=== PATIENT | female | born 1985 | race Caucasian/White ===

== ENCOUNTER 2017-07-10 09:23 | Emergency (ER) | payer SELFPAY ==
[2017-07-10] MEDS ORDERED: FAMOTIDINE 20 MG/2 ML VIAL IV ONE (10:30)
[2017-07-10] MEDS ORDERED: FENTANYL CITR 100 MCG/2 ML ONE (10:30)
[2017-07-10] MEDS ORDERED: ONDANSETRON 4 MG/2 ML VIAL ONE (10:30)
[2017-07-10] MEDS ORDERED: NA CHLORIDE 0.9% 1,000 ML ONE ×2 (10:30→15:12)
[2017-07-10 10:37] LABS: Absolute Lymphocytes (CBC) 1.5 K/uL (0.7-4.9); Absolute Monocytes 0.8 K/uL (0.1-1.3); Absolute Neutrophil 7.4 K/uL (1.8-8.0); Basophils % 0.2 % (0-1.3); Eosinophils % 0.1 % (0-4.4); Hematocrit 43.4 % (36.0-45.0); MCV 79.5 fL (80-100); MPV 7.7 fL (7.6-11.3); Monocytes % 8.3 % (3.3-12.3); RBC Red Blood Cell Count 5.45 M/uL (3.86-4.86)
[2017-07-10 10:42] LABS: Protime INR 1.09
[2017-07-10 10:50] LABS: Bicarbonate 25 mEq/L (21-31); Glucose Level 99 mg/dL (65-120); Lipase 16 U/L (22-51); Potassium 3.9 mEq/L (3.6-5.0); Sodium Level 137 mEq/L (135-145)
[2017-07-10 10:53] LABS: Urine Blood NEGATIVE (NEG); Urine Glucose NEGATIVE (NEG); Urine Protein NEGATIVE (NEG); Urine Specific Gravity 1.015 (1.005-1.030)
[2017-07-10 10:57] LABS: ALT/SGPT 12 IU/L (10-60); AST/SGOT 15 IU/L (10-42); Albumin 4.5 g/dL (3.2-5.5); Alkaline Phosphatase 61 IU/L (42-121); Amylase Level 40 U/L (28-100); BUN Blood Urea Nitrogen 10 mg/dL (6-20); Bilirubin Direct 0.1 mg/dL (0-0.2); Bilirubin Total 0.8 mg/dL (0.3-1.2); Protein, Total 8.6 g/dL (6.0-8.3)
[2017-07-10 10:59] LABS: Urine Amorphous Sediment TRACE /HPF (NONE SEEN); Urine Bacteria <20 /HPF (<20); Urine Culture Reflex Order NOT NEEDED; Urine RBC NONE SEEN /HPF (NONE SEEN)
[2017-07-10] MEDS ORDERED: CEFTRIAXONE/SWI 1gm 1 GM/10 ML SYR ONE (12:36)
--- NOTE | 2017-07-10 12:49 | RAD REPORT ---
EXAM DESCRIPTION: CT - Abdomen Pelvis W Contrast - 07/10/2017 12:16 pm CLINICAL HISTORY: Abdominal pain, epigastric pain, history of hepatitis COMPARISON: None. TECHNIQUE: Biphasic, helical CT imaging of the abdomen and pelvis was performed following 100 ml non -ionic IV contrast. Oral contrast was given. All CT scans are performed using dose optimization technique as appropriate and may include automated exposure control or mA/KV adjustment according to patient size. FINDINGS: Minimal atelectasis. No acute lung base finding. No pericardial thickening or effusion. Liver shows a mild to borderline fatty infiltration. No focal liver lesion is identifiable. No capsul ar nodularity. No splenomegaly or focal splenic finding. No acute pancreatic process identifiable. No biliary tree dilatation. Symmetric renal function is seen with no hydronephrosis or suspicious renal mass. No pyelonephritis o r acute renal parenchymal process. No urinary bladder, uterus or ovarian abnormality. IUD is in place . No gastric dilatation or gastric wall thickening. No delay in transit of contrast. No primary duodenu m process is seen. No dilated small bowel or small bowel wall thickening. No appendicitis findings. T erminal ileum and ileocecal valve are unremarkable. Oral CT contrast has reached the mid transverse colon. At the hepatic flexure there is asymmetric col on wall thickening and edema. Lumen of the colon is narrowed compared to the transverse and ascending colons. There is a significant amount of fluid and stranding along the margin of the colon abutting the liver. A 4.5 centimeter fluid collection is seen. There is a thin rim of tissue around this fluid collection. The fluid in stranding abut the gallbladder fossa. Gallbladder woods are mildly prominen t. Gallbladder wall appears to be secondarily involved. This is believed to be primarily a colon proc ess. Acute cholecystitis with secondary colon involvement is felt to be lesser in likelihood. There i s no extravasation of the oral contrast as it passes through the hepatic flexure of the colon. No free air or pneumatosis. No other area of fluid or stranding. No hernia or bulky lymphadenopathy. No omental thickening. No adrenal abnormality. No suspicious bony findings. IMPRESSION: Abnormal appearance to the hepatic flexure of the colon with asymmetric wall thickening over a 10 centimeter length with fluid and stranding along the anti mesenteric margin of the colon wh ere it abuts the liver and gallbladder. Gallbladder wall appears to be secondarily involved by the fluid and inflammatory stranding. No bilia ry tree dilatation. A primary gallbladder process with secondary colon involvement is felt to be a mu ch less likely possibility. Colon finding is nonspecific. Infectious/inflammatory colitis is a consideration. HIV history was in dicated. There is HIV and immunocompromised colitis that can develop. A 4.5 centimeter fluid collection is present between the involved colon in the inferior right lobe of the liver. This is not yet definitive for abscess formation but needs ongoing monitoring. No free air, perforation or evidence for extravasation of oral or IV contrast.
--- NOTE | 2017-07-10 13:00 | EDPHYS ---
Physician Documentation [facility] Name: Mabel Marie Age: 32 yrs Sex: Female : 1985 Arrival Date: 07/10/2017 Time: 09:24 Bed 18 Private MD: None, None ED Physician Margarito Bañuelos HPI: 07/10 10:19 This 32 yrs old Female presents to ER via Ambulatory with complaints of petrona Abdominal Pain. 10:19 The patient presents with abdominal pain. Onset: The symptoms/episode began/occurred 2 petrona day(s) ago. The symptoms do not radiate. Associated signs and symptoms: none. Modifying factors: The symptoms are alleviated by nothing, the symptoms are aggravated by nothing. Severity of pain: At its worst the pain was mild moderate in the emergency department the pain is unchanged. The patient has experienced similar episodes in the past, several times. 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 - Social history:: Smoking status: Patient uses tobacco products, smokes one-half pack cigarettes per day. - Family history:: not pertinent. ROS: 10:19 Constitutional: Negative for fever, chills, and weight loss, Eyes: Negative for injury, petrona pain, redness, and discharge, ENT: Negative for injury, pain, and discharge, Neck: Negative for injury, pain, and swelling, Cardiovascular: Negative for chest pain, palpitations, and edema, Respiratory: Negative for shortness of breath, cough, wheezing, and pleuritic chest pain, Back: Negative for injury and pain, : Negative for injury, bleeding, discharge, and swelling, MS/Extremity: Negative for injury and deformity, Skin: Negative for injury, rash, and discoloration, Neuro: Negative for headache, weakness, numbness, tingling, and seizure, Psych: Negative for depression, anxiety, suicide ideation, homicidal ideation, and hallucinations, Allergy/Immunology: Negative for hives, rash, and allergies, Endocrine: Negative for neck swelling, polydipsia, polyuria, polyphagia, and marked weight changes, Hematologic/Lymphatic: Negative for swollen nodes, abnormal bleeding, and unusual bruising. 10:19 Abdomen/GI: Positive for abdominal pain, nausea and vomiting. Exam: 10:19 Constitutional: This is a well developed, well nourished patient who is awake, alert, petrona and in no acute distress. Head/Face: Normocephalic, atraumatic. Eyes: Pupils equal round and reactive to light, extra-ocular motions intact. Lids and lashes normal. Conjunctiva and sclera are non-icteric and not injected. Cornea within normal limits. Periorbital areas with no swelling, redness, or edema. ENT: Nares patent. No nasal discharge, no septal abnormalities noted. Tympanic membranes are normal and external auditory canals are clear. Oropharynx with no redness, swelling, or masses, exudates, or evidence of obstruction, uvula midline. Mucous membranes moist. Neck: Trachea midline, no thyromegaly or masses palpated, and no cervical lymphadenopathy. Supple, full range of motion without nuchal rigidity, or vertebral point tenderness. No Meningismus. Chest/axilla: Normal chest wall appearance and motion. Nontender with no deformity. No lesions are appreciated. Respiratory: Lungs have equal breath sounds bilaterally, clear to auscultation and percussion. No rales, rhonchi or wheezes noted. No increased work of breathing, no retractions or nasal flaring. Back: No spinal tenderness. No costovertebral tenderness. Full range of motion. Female : Normal external genitalia. Skin: Warm, dry with normal turgor. Normal color with no rashes, no lesions, and no evidence of cellulitis. MS/ Extremity: Pulses equal, no cyanosis. Neurovascular intact. Full, normal range of motion. Neuro: Awake and alert, GCS 15, oriented to person, place, time, and situation. Cranial nerves II-XII grossly intact. Motor strength 5/5 in all extremities. Sensory grossly intact. Cerebellar exam normal. Normal gait. Psych: Awake, alert, with orientation to person, place and time. Behavior, mood, and affect are within normal limits. 10:19 Cardiovascular: Rate: tachycardic, Rhythm: regular, Pulses: Pulses are 4+ in bilateral radial, brachial, femoral, popliteal, posterior tibial and and dorsalis pedis arteries.. Heart sounds: normal, Edema: is not appreciated, JVD: is not appreciated. Vital Signs: 09:38 BP 131 / 95; Pulse 132; Resp 19; Temp 98.7(O); Pulse Ox 100% on R/A; Weight 75.75 kg la1 (R); Height 5 ft. 2 in. (157.48 cm); 09:57 BP 138 / 88; Pulse 124; Resp 18; Pulse Ox 100% on R/A; hj 10:41 BP 123 / 86; Pulse 117; Resp 18; Pulse Ox 100% on R/A; hj 11:45 BP 124 / 85; Pulse 102; Resp 18; Pulse Ox 100% on R/A; hj 12:30 BP 125 / 84; Pulse 112; Resp 18; Pulse Ox 100% on R/A; hj 13:28 BP 127 / 86; Pulse 117; Resp 18; Pulse Ox 100% on R/A; hj 15:13 BP 128 / 84; Pulse 129; Resp 18; Temp 99.1(O); Pulse Ox 100% on R/A; hj 15:54 BP 112 / 86; Pulse 124; Resp 18; Temp 98.6(O); Pulse Ox 100% on R/A; hj 09:38 Body Mass Index 30.54 (75.75 kg, 157.48 cm) la1 MDM: 09:51 Patient medically screened. [facility] 09:52 Patient medically screened. [facility] 10:21 Data reviewed: vital signs, nurses notes, lab test result(s), radiologic studies, CT petrona scan, plain films. 07/10 10:18 Order name: Amylase, Serum; Complete Time: 11:51 [facility] 07/10 10:18 Order name: Basic Metabolic Panel; Complete Time: 11:51 [facility] 07/10 10:18 Order name: CBC with Diff; Complete Time: 11:51 [facility] 07/10 10:18 Order name: Creatinine for Radiology; Complete Time: :51 [facility] 07/10 10:18 Order name: Hepatic Function; Complete Time: :51 [facility] 07/10 10:18 Order name: Lipase; Complete Time: :51 [facility] 07/10 10:18 Order name: Urine Microscopic Only; Complete Time: 11:51 [facility] 07/10 10:18 Order name: AMMONIA; Complete Time: 11:51 [facility] 07/10 10:18 Order name: PT-INR; Complete Time: 11:51 [facility] 07/10 10:18 Order name: Ptt, Activated; Complete Time: 11:51 [facility] 07/10 10:21 Order name: Urine Culture [facility] 07/10 10:18 Order name: IV Saline Lock; Complete Time: 10:19 [facility] 07/10 10:18 Order name: Chest Single View XRAY; Complete Time: 15:38 [facility] 07/10 10:18 Order name: CT Abd/Pelvis - W/Contrast; Complete Time: 12:52 [place] 07/10 10:43 Order name: Urine Dipstick--Ancillary (enter results); Complete Time: 11:51 ag 07/10 10:43 Order name: Urine --Ancillary (enter results); Complete Time: 11:51 ag 07/10 12:57 Order name: US Abdomen Limited; Complete Time: 15:38 [facility] 07/10 10:18 Order name: Labs collected and sent; Complete Time: 10:36 [facility] 07/10 10:18 Order name: Urine Dipstick-Ancillary (obtain specimen); Complete Time: 10:36 [facility] 07/10 10:18 Order name: Urine Test (obtain specimen); Complete Time: 10:19 [facility] Administered Medications: 10:18 Drug: NS 0.9% 1000 ml Route: IV; Rate: 1 bolus; Site: right antecubital; hj 15:21 Follow up: IV Status: Completed infusion hj 10:18 Drug: fentaNYL (PF) 50 mcg Route: IVP; Site: right antecubital; hj 10:47 Follow up: Response: No adverse reaction; Pain is decreased hj 10:18 Drug: Zofran 4 mg Route: IVP; Site: right antecubital; hj 10:46 Follow up: Response: No adverse reaction hj 10:19 Drug: Pepcid 20 mg Route: IVP; Site: right antecubital; hj 10:46 Follow up: Response: No adverse reaction hj 12:05 Drug: fentaNYL (PF) 50 mcg Route: IVP; Site: right antecubital; hj 12:06 Follow up: Response: Pain is decreased hj 12:37 Drug: Rocephin - (cefTRIAXone) 1 grams Route: IVPB; Infused Over: 30 mins; Site: right hj antecubital; 13:10 Follow up: IV Status: Completed infusion hj 12:57 Drug: Flagyl 500 mg Volume: 100 ml; Route: IVPB; Rate: 200 ml/hr; Infused Over: 30 hj mins; Site: right antecubital; 13:10 Follow up: IV Status: Completed infusion hj 14:09 Drug: Cipro 400 mg Volume: 200 ml; Route: IVPB; Infused Over: 60 mins; Site: right iw antecubital; 14:09 Follow up: IV Status: Infusion continued upon admission iw 15:14 Drug: NS 0.9% 1000 ml Route: IV; Rate: 1 bolus; Site: right antecubital; hj 15:15 Follow up: IV Status: Completed infusion hj 15:50 Drug: morphine 4 mg Route: IVP; Site: right antecubital; hj 15:50 Follow up: Response: No adverse reaction; Pain is decreased hj Disposition: 07/10/17 12:[address] [facility]. Diagnosis are Abdominal tenderness, Human immunodeficiency virus [HIV] disease, Other and unspecified noninfective gastroenteritis and colitis, Diarrhea, unspecified, Cholecystitis, Cholelithiasis. - Reason for transfer: Higher level of care. - Accepting physician is to [facility].. dr hoff. - Condition is Fair. - Problem is new. - Symptoms have improved. Signatures: Dispatcher [employer] EDOK Margarito Bañuelos MD MD cha Williams, Irene, RN JEAN CARLOS Helder Kennedy RN JEAN CARLOS laCameron Chambers RN JEAN CARLOS hj Corrections: (The following items were deleted from the chart) 10:22 10:21 Occult Blood+PA.LAB.BRZ ordered. [facility] 13:22 12:59 07/10/2017 12:[address] [facility]. Diagnosis is Abdominal petrona tenderness; Human immunodeficiency virus [HIV] disease; Other and unspecified noninfective gastroenteritis and colitis; Diarrhea, unspecified. Reason for transfer: Higher level of care. Accepting physician is to [facility]. Condition is Fair. Problem is new. Symptoms have improved. [facility] 14:16 13:22 07/10/2017 12:[address] [facility]. Diagnosis is Abdominal petrona tenderness; Human immunodeficiency virus [HIV] disease; Other and unspecified noninfective gastroenteritis and colitis; Diarrhea, unspecified. Reason for transfer: Higher level of care. Accepting physician is to [facility].. dr hoff. Condition is Fair. Problem is new. Symptoms have improved. [facility] 15:56 14:16 07/10/2017 12:[address] [facility]. Diagnosis is Abdominal hj tenderness; Human immunodeficiency virus [HIV] disease; Other and unspecified noninfective gastroenteritis and colitis; Diarrhea, unspecified; Cholecystitis; Cholelithiasis. Reason for transfer: Higher level of care. Accepting physician is to [facility].. dr hoff. Condition is Fair. Problem is new. Symptoms have improved. [facility]
--- NOTE | 2017-07-10 13:00 | ER ---
Nurse's Notes [facility] Name: Mabel Marie Age: 32 yrs Sex: Female : 1985 Arrival Date: 07/10/2017 Time: 09:24 Bed 18 Private MD: None, None Diagnosis: Abdominal tenderness;Human immunodeficiency virus [HIV] disease;Other and unspecified noninfective gastroenteritis and colitis;Diarrhea, unspecified;Cholecystitis;Cholelithiasis Presentation: 07/10 09:37 Presenting complaint: Patient states: I have had epigastric pain for 3 days, denies la1 N/V, reports diarrhea. Denies fever, chills. Transition of care: patient was not received from another setting of care. Onset of symptoms was July 10, 2017. Initial Sepsis Screen: Does the patient meet any 2 criteria? No. Patient's initial sepsis screen is negative. Does the patient have a suspected source of infection? No. Patient's initial sepsis screen is negative. Care prior to arrival: None. 09:37 Method Of Arrival: Ambulatory la1 09:37 Acuity: JOY 2 la1 Triage Assessment: 09:43 General: Appears in no apparent distress. uncomfortable, Behavior is calm, cooperative, hj appropriate for age. Pain: Complains of pain in abdomen. GI: Reports lower abdominal pain, upper abdominal pain, nausea, vomiting. 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 - Social history:: Smoking status: Patient uses tobacco products, smokes one-half pack cigarettes per day. - Family history:: not pertinent. Screenin:43 Abuse screen: Denies threats or abuse. Denies injuries from another. Nutritional hj screening: No deficits noted. Tuberculosis screening: No symptoms or risk factors identified. Fall Risk None identified. Assessment: 09:44 GI: Bowel sounds present X 4 quads. hj 09:44 General: Appears in no apparent distress. uncomfortable, obese, Behavior is calm, hj cooperative, appropriate for age. Pain: Complains of pain in abdomen. Neuro: Level of Consciousness is awake, alert, obeys commands, Oriented to person, place, time, situation, Appropriate for age. Cardiovascular: Capillary refill < 3 seconds Patient's skin is warm and dry. Respiratory: Airway is patent Respiratory effort is even, unlabored, Respiratory pattern is regular, symmetrical. : No signs and/or symptoms were reported regarding the genitourinary system. EENT: No signs and/or symptoms were reported regarding the EENT system. Derm: No signs and/or symptoms reported regarding the dermatologic system. Musculoskeletal: No signs and/or symptoms reported regarding the musculoskeletal system. 10:05 Reassessment: pt states she is currently at [facility] for IV drug abuse, used iw heroin and Dilaudid, last used in April, has been in rehab since June 29, is originally from [place]. 10:12 GI: Reports lower abdominal pain, upper abdominal pain, diarrhea. hj 10:40 Reassessment: left voicemail to CT, pt finished contrast;. hj 11:45 Reassessment: Patient and/or family updated on plan of care and expected duration. Pain hj level reassessed. Patient is alert, oriented x 3, equal unlabored respirations, skin warm/dry/pink. 12:10 Reassessment: wheeled to CT;. hj 12:25 Reassessment: Patient and/or family updated on plan of care and expected duration. Pain hj level reassessed. Patient is alert, oriented x 3, equal unlabored respirations, skin warm/dry/pink. back from CT;. 13:28 Reassessment: Patient and/or family updated on plan of care and expected duration. Pain hj level reassessed. Patient is alert, oriented x 3, equal unlabored respirations, skin warm/dry/pink. for transfer; awaiting paper works;. 14:30 Reassessment: Patient and/or family updated on plan of care and expected duration. Pain hj level reassessed. Patient is alert, oriented x 3, equal unlabored respirations, skin warm/dry/pink. awaiting ambulance;. 15:20 Reassessment: Patient and/or family updated on plan of care and expected duration. Pain hj level reassessed. Patient is alert, oriented x 3, equal unlabored respirations, skin warm/dry/pink. HR elevated to 130-140's, provider informed; NS 1L bolus ordered;. 15:54 Reassessment: reports given to EMS;. hj Vital Signs: 09:38 BP 131 / 95; Pulse 132; Resp 19; Temp 98.7(O); Pulse Ox 100% on R/A; Weight 75.75 kg la1 (R); Height 5 ft. 2 in. (157.48 cm); 09:57 BP 138 / 88; Pulse 124; Resp 18; Pulse Ox 100% on R/A; hj 10:41 BP 123 / 86; Pulse 117; Resp 18; Pulse Ox 100% on R/A; hj 11:45 BP 124 / 85; Pulse 102; Resp 18; Pulse Ox 100% on R/A; hj 12:30 BP 125 / 84; Pulse 112; Resp 18; Pulse Ox 100% on R/A; hj 13:28 BP 127 / 86; Pulse 117; Resp 18; Pulse Ox 100% on R/A; hj 15:13 BP 128 / 84; Pulse 129; Resp 18; Temp 99.1(O); Pulse Ox 100% on R/A; hj 15:54 BP 112 / 86; Pulse 124; Resp 18; Temp 98.6(O); Pulse Ox 100% on R/A; hj 09:38 Body Mass Index 30.54 (75.75 kg, 157.48 cm) la1 ED Course: 09:24 Patient arrived in ED. mr 09:25 None, None is Private Physician. mr 09:38 Triage completed. la1 09:39 Arm band placed on right wrist. la1 09:41 Cameron Roberts, JEAN CARLOS is Primary Nurse. hj 09:44 Patient has correct armband on for positive identification. Placed in gown. Bed in low hj position. Call light in reach. Side rails up X 1. Adult w/ patient. 09:51 Margarito Bañuelos MD is Attending Physician. petrona 10:09 Inserted saline lock: 20 gauge in right antecubital area, using aseptic technique. iw Blood collected. 10:46 Urine collected: clean catch specimen, cloudy, doimnic colored. jb1 11:08 Chest Single View XRAY In Process Unspecified. EDMS 12:12 CT completed. Patient moved to CT via wheelchair. Patient moved back from CT. cw1 12:17 CT Abd/Pelvis - W/Contrast In Process Unspecified. EDMS 13:29 Ultrasound completed. Patient tolerated well. Notified ED Physician dexter. sg3 15:55 No provider procedures requiring assistance completed. Patient transferred, IV remains hj in place. intact. Administered Medications: 10:18 Drug: NS 0.9% 1000 ml Route: IV; Rate: 1 bolus; Site: right antecubital; hj 15:21 Follow up: IV Status: Completed infusion hj 10:18 Drug: fentaNYL (PF) 50 mcg Route: IVP; Site: right antecubital; hj 10:47 Follow up: Response: No adverse reaction; Pain is decreased hj 10:18 Drug: Zofran 4 mg Route: IVP; Site: right antecubital; hj 10:46 Follow up: Response: No adverse reaction hj 10:19 Drug: Pepcid 20 mg Route: IVP; Site: right antecubital; hj 10:46 Follow up: Response: No adverse reaction hj 12:05 Drug: fentaNYL (PF) 50 mcg Route: IVP; Site: right antecubital; hj 12:06 Follow up: Response: Pain is decreased hj 12:37 Drug: Rocephin - (cefTRIAXone) 1 grams Route: IVPB; Infused Over: 30 mins; Site: right hj antecubital; 13:10 Follow up: IV Status: Completed infusion hj 12:57 Drug: Flagyl 500 mg Volume: 100 ml; Route: IVPB; Rate: 200 ml/hr; Infused Over: 30 hj mins; Site: right antecubital; 13:10 Follow up: IV Status: Completed infusion hj 14:09 Drug: Cipro 400 mg Volume: 200 ml; Route: IVPB; Infused Over: 60 mins; Site: right iw antecubital; 14:09 Follow up: IV Status: Infusion continued upon admission iw 15:14 Drug: NS 0.9% 1000 ml Route: IV; Rate: 1 bolus; Site: right antecubital; hj 15:15 Follow up: IV Status: Completed infusion hj 15:50 Drug: morphine 4 mg Route: IVP; Site: right antecubital; hj 15:50 Follow up: Response: No adverse reaction; Pain is decreased hj Outcome: 12:59 ER care complete, transfer ordered by MD. russ 15:55 Transferred by ground EMS to [facility]. hj 15:55 Condition: stable 15:55 Instructed on the need for transfer, Demonstrated understanding of instructions. 15:56 Patient left the ED. hj Signatures: Dispatcher [employer] EDMS ZeusNigel jb1 Margarito Bañuelos MD MD cha Rivera, Maria mr Chiquis Lennon, RN Dahiana Gilliland cw1 Helder Kennedy RN RN la1 Cameron Roberts RN RN hj Godinez, Sarah sg3 Corrections: (The following items were deleted from the chart) 10:13 09:44 : No signs and/or symptoms were reported regarding the genitourinary system. dm chaidez 14:19 14:18 In radiology for Abdomen Limited+US.RAD.BRZ. EDNJ sg3
[2017-07-10] MEDS ORDERED: CIPROFLOXACIN 400mg IV 400 MG/200 ML BAG IV ONE (13:05)
[2017-07-10] MEDS ORDERED: METRONIDAZOLE 500mg IVPB 500 MG/100 ML BAG IV ONE (13:05)
--- NOTE | 2017-07-10 13:51 | RAD REPORT ---
EXAM DESCRIPTION: RAD - Chest Single View - 07/10/2017 11:08 am CLINICAL HISTORY: Abdominal pain, abdominal distention COMPARISON: None. TECHNIQUE: AP portable chest image was obtained 1102 hour . FINDINGS: Lung volumes are low accentuating heart, vasculature and lung markings. No peripheral mass or consolidation. Significant failure or volume overload doubtful. Heart and vasculature are normal. No measurable pleural effusion and no pneumothorax. No gross bony abnormality seen. No acute aortic findings suspected. IMPRESSION: Shallow inspiration film showing no focal infiltrate. No significant failure or volume overload.
--- NOTE | 2017-07-10 14:45 | RAD REPORT ---
EXAM DESCRIPTION: US - Abdomen Exam Limited - 07/10/2017 2:17 pm CLINICAL HISTORY: Abdominal pain COMPARISON: None. FINDINGS: Multiple 1 centimeter sized gallstones are identified. Gallbladder wall is prominent. Idalia cholecystic fluid is present. No common duct stone or biliary tree dilatation identified. IMPRESSION: Multiple gallstones are present. Gallbladder wall is prominent with pericholecystic fluid. No biliary tree abnormality. Please see separate CT abdomen report. Right upper quadrant findings involve the hepatic flexure of t he colon and the gallbladder. Based on CT, findings were favored to be a primary colon process with s econdary gallbladder involvement. Ultrasound findings are less definitive as to a primary or colon pr imary process.
[2017-07-10] MEDS ORDERED: MORPHINE 4 MG/ML SYR ONE (15:48)
== END 2017-07-10 15:56 | disposition short-term general hospital (02) ==
LOC: ER 09:23
DX: K52.89 Other specified noninfective gastroenteritis and colitis (principal); K80.10 Calculus of gallbladder with chronic cholecystitis without obstruction; R19.7 Diarrhea, unspecified; Z21 Asymptomatic human immunodeficiency virus [HIV] infection status; F17.210 Nicotine dependence, cigarettes, uncomplicated
CPT/HCPCS: 36415; 71045; 74177; 76705; 80048; 80076; 81003; 81015; 81025; 82140; 82150; 83690; 85025; 85610; 85730; 87086; 87088; 96361; 96365; 96375; 99285; J0696; J0744; J2405; J3010; J7030; Q9967